=== PATIENT | male | born 1995 ===

== ENCOUNTER 2016-12-12 18:37 | Emergency (ER) | payer SELFPAY ==
[~2016-12-12] VITALS: Ht 190.5 cm; Wt 96.3 kg
[~2016-12-12 18:37] MED LIST: OXYC1TAB3 PO
[2016-12-12 18:39] VITALS: TEMP 36.9; Ht 190.5 cm; Wt 96.3 kg
[2016-12-12] MEDS ORDERED: IBUP-103 PO (18:50)
[2016-12-12] MEDS ORDERED: SODIUM CHLORIDE 0.9% 1000ML 1,000 ML IV STA (18:54)
[2016-12-12 19:09] VITALS: O2SAT 97
[2016-12-12 19:15] LABS: BASO % 0.2 %; BASO ABS # 0.02 K/uL (0-0.2); COMPLETE YES; EOS % 0.7 %; HEMATOCRIT 44.5 % (42-52); IG% 0.3 %; LYMPH % 20.3 %; LYMPH ABS # 1.97 K/uL (1.2-3.4); MEAN CELL VOLUME 89.2 fL (80-100); MEAN CORPUSCULAR HEMOGLOBIN 30.5 pg (25-34); MEAN CORPUSCULAR HGB CONC 34.2 g/dl (32-36); MEAN PLATELET VOLUME 10.2 fL (7.4-10.4); NEUT % 69.5 %; PLATELET COUNT 222 K/uL (130-400); RED BLOOD COUNT 4.99 M/uL (4.7-6.1)
[2016-12-12 19:30] LABS: ALT/SGPT 40 U/L (12-78); AST/SGOT 50 U/L (15-37); BLOOD UREA NITROGEN 19 mg/dl (7-18); BUN/CREATININE RATIO 14.5 (10-20); CALCIUM 8.7 mg/dl (8.5-10.1); CARBON DIOXIDE 30 mmol/L (21-32); CHLORIDE 105 mmol/L (98-107); GLUCOSE 94 mg/dl (70-99); POTASSIUM 3.9 mmol/L (3.5-5.1); SODIUM 141 mmol/L (136-145)
[2016-12-12 19:40] LABS: ALB/GLOB RATIO 1.2 (0.9-2); ALKALINE PHOSPHATASE 82 U/L (45-117); THYROID STIMULATING HORMONE 0.695 uIu/ml (0.300-4.500)
--- NOTE | 2016-12-12 19:44 | DIAGNOSTIC IMAGING REPORT ---
TWO VIEW CHEST CLINICAL HISTORY: Palpitations. FINDINGS: PA and lateral chest radiographs are obtained. No prior studies are available for comparison at the time of dictation. The cardiomediastinal silhouette is unremarkable. The lungs and pleural spaces are clear. There is no pneumothorax. The bony thorax appears intact. IMPRESSION: No active disease in the chest. Electronically signed by: Bhanu Arce M.D. 12/12/2016 7:42 PM Dictated Date/Time: 12/12/2016 7:41 PM
[2016-12-12 20:03] VITALS: BP 130/88; PULSE 83; O2SAT 98
--- NOTE | 2016-12-12 20:22 | EMERGENCY ROOM VISIT NOTE ---
History First contact with patient: 18:43 Chief Complaint: BRADYCARDIA Stated Complaint: BRADYCARDIA Nursing Triage Summary: pt to the ED with c/o feeling off during the day "i feel like my heart is beating slow and my breath is shallow". pt is concerned about a irregular heart beat no complaints of pain "i had a lot to drink last night" denies using drugs History of Present Illness The patient is a 21 year old male who presents to the Emergency Room with complaints of feeling "off" throughout the day. The patient states that he has been feeling like his heart is beating slower than normal and that his breath has been shallow. He states that he believes he may have been having irregular heartbeats at times. The patient came short of breath while walking up until, which is abnormal for him. He does report that he drank a significant amount of alcohol last night, which is abnormal for him. The patient denies any pain in the chest. He does report he has been lightheaded, but not dizzy. He denies any history of cardiac disease but does state that his mother has a history of a heart murmur. The patient denies any drug use. He denies any abdominal pain, nausea, vomiting or fevers. Review of Systems A complete 10-point Review of Systems was discussed with the patient, with pertinent positives and negatives listed in the History of Present Illness. All remaining Review of Systems questions can be considered negative unless otherwise specified. Past Medical/Surgical History Medical Problems: (1) No significant past medical history Surgical Problems: (1) No history of previous surgery Social History Smoking Status: Never Smoker Alcohol Use: none Marital Status: single Occupation Status: [employer] student Current/Historical Medications Scheduled Ibuprofen Tab (Advil), 200 MG PO DAILY Allergies Coded Allergies: No Known Allergies (Unverified , 12/12/16) Physical Exam Vital Signs Date Time Temp Pulse Resp B/P Pulse Ox O2 Delivery O2 Flow Rate FiO2 12/12/16 20:03 83 18 130/88 98 Room Air 12/12/16 19:11 96 Room Air 12/12/16 19:09 97 Room Air 12/12/16 19:04 88 12/12/16 18:39 36.9 100 18 149/88 97 Room Air Physical Exam VITALS: Vitals are noted on the nurse's note and reviewed by myself. Vital signs stable. GENERAL: This is a 21-year-old male, in no acute distress, nondiaphoretic, well- developed well-nourished. SKIN: Capillary reflex less than 2 seconds. HEENT: Normocephalic. PERRLA. EOMI. Nares patent. Mucous membranes moist. Neck is supple without nuchal rigidity. HEART: Regular rate and rhythm without murmurs gallops or rubs. LUNGS: Clear to auscultation bilaterally without wheezes, rales or rhonchi. No retractions or accessory muscle use. ABDOMEN: Positive bowel sounds x 4. Soft, nontender to palpation. NEURO: Patient was alert and oriented to person place and time. Normal sensation to light and sharp touch. Medical Decision & Procedures ER Provider Diagnostic Interpretation: TWO VIEW CHEST CLINICAL HISTORY: Palpitations. FINDINGS: PA and lateral chest radiographs are obtained. No prior studies are available for comparison at the time of dictation. The cardiomediastinal silhouette is unremarkable. The lungs and pleural spaces are clear. There is no pneumothorax. The bony thorax appears intact. IMPRESSION: No active disease in the chest. Laboratory Results 12/12/16 19:00 Red Blood Count 4.99, Mean Corpuscular Volume 89.2, Mean Corpuscular Hemoglobin 30.5, Mean Corpuscular Hemoglobin Concent 34.2, Mean Platelet Volume 10.2, Neutrophils (%) (Auto) 69.5, Lymphocytes (%) (Auto) 20.3, Monocytes (%) (Auto) 9.0, Eosinophils (%) (Auto) 0.7, Basophils (%) (Auto) 0.2, Neutrophils # (Auto) 6.74, Lymphocytes # (Auto) 1.97, Monocytes # (Auto) 0.87, Eosinophils # (Auto) 0.07, Basophils # (Auto) 0.02 12/12/16 19:00 Test 12/12/16 19:00 White Blood Count 9.70 K/uL (4.8-10.8) Red Blood Count 4.99 M/uL (4.7-6.1) Hemoglobin 15.2 g/dL (14.0-18.0) Hematocrit 44.5 % (42-52) Mean Corpuscular Volume 89.2 fL (80-100) Mean Corpuscular Hemoglobin 30.5 pg (25-34) Mean Corpuscular Hemoglobin Concent 34.2 g/dl (32-36) Platelet Count 222 K/uL (130-400) Mean Platelet Volume 10.2 fL (7.4-10.4) Neutrophils (%) (Auto) 69.5 % Lymphocytes (%) (Auto) 20.3 % Monocytes (%) (Auto) 9.0 % Eosinophils (%) (Auto) 0.7 % Basophils (%) (Auto) 0.2 % Neutrophils # (Auto) 6.74 K/uL (1.4-6.5) Lymphocytes # (Auto) 1.97 K/uL (1.2-3.4) Monocytes # (Auto) 0.87 K/uL (0.11-0.59) Eosinophils # (Auto) 0.07 K/uL (0-0.5) Basophils # (Auto) 0.02 K/uL (0-0.2) RDW Standard Deviation 40.0 fL (36.4-46.3) RDW Coefficient of Variation 12.4 % (11.5-14.5) Immature Granulocyte % (Auto) 0.3 % Immature Granulocyte # (Auto) 0.03 K/uL (0.00-0.02) D-Dimer < 190 ug/L FEU (0-500) Anion Gap 6.0 mmol/L (3-11) Est Creatinine Clear Calc Drug Dose 106.5 ml/min Estimated GFR () 89.8 Estimated GFR (Non- 77.5 BUN/Creatinine Ratio 14.5 (10-20) Calcium Level 8.7 mg/dl (8.5-10.1) Total Bilirubin 0.6 mg/dl (0.2-1) Aspartate Amino Transf (AST/SGOT) 50 U/L (15-37) Alanine Aminotransferase (ALT/SGPT) 40 U/L (12-78) Alkaline Phosphatase 82 U/L (45-117) Troponin I < 0.015 ng/ml (0-0.045) Total Protein 7.4 gm/dl (6.4-8.2) Albumin 4.1 gm/dl (3.4-5.0) Globulin 3.3 gm/dl (2.5-4.0) Albumin/Globulin Ratio 1.2 (0.9-2) Thyroid Stimulating Hormone (TSH) 0.695 uIu/ml (0.300-4.500) Medications Administered Medications (Trade) Dose Ordered Sig/[place] Route Start Time Stop Time Status Last Admin Dose Admin Sodium Chloride (Nss 1000ml) 1,000 ml @ 999 mls/hr Q1H1M STAT IV 12/12/16 18:54 12/12/16 19:54 DC 12/12/16 18:54 999 MLS/HR ECG Rate (beats per minute): 88 Rhythm: normal sinus Findings: no acute ischemic change, no ectopy Comparison ECG Date: no prior available Medical Decision Differential diagnosis includes acute coronary syndrome, pulmonary embolism, pneumothorax, pericarditis, myocarditis, endocarditis, anxiety, musculoskeletal pain, GERD, costochondritis, pneumonia, among others. The patient was evaluated as above. Labs were drawn and IV access was obtained. Imaging studies were performed and read by radiology as above. The patient was medicated with 1 L normal saline solution. The patient was reassessed multiple times during their stay in the emergency department and remained in stable condition. The patient is a 21-year-old male who presents today complaining of palpitations and shallow breathing. Labs revealed no leukocytosis, anemia or concerning electrolyte abnormalities. BUN was slightly elevated consistent with dehydration. AST was slightly elevated consistent with the patient's recent alcohol ingestion. Troponin was not elevated. D-dimer was not elevated. EKG was interpreted by myself and showed a normal sinus rhythm without ischemia or arrhythmias. Chest x-ray was unremarkable. The patient did report that he felt better after receiving 1 L of IV fluids. I feel the patient's symptoms are likely secondary to his recent alcohol ingestion. He was instructed to drink plenty of fluids and follow-up with [facility] if he has any persistent symptoms. Based on the patient's presentation, lab results, and imaging studies, I feel the patient is stable for outpatient treatment. The patient's case was reviewed with Dr. Ramos, ED attending physician, who agreed with my assessment and treatment plan. Discharge instructions were reviewed with the patient. The patient verbalized understanding of my assessment and treatment plan and was discharged home in good condition. Impression Primary Impression: Palpitations Departure Information Dispostion Home / Self-Care Condition GOOD Referrals No Doctor, Assigned (PCP) Patient Instructions My [facility] Nourish Additional Instructions Rest and drink plenty fluids. For pain control, you can use the following [id number] medicines (if >12 yo): - Regular strength (325mg/tab) Tylenol (acetaminophen) 2 tabs every 4-6 hours as needed. Do not exceed 12 tablets in a 24 hour period. Avoid taking more than 4 grams (4000 mg) of Tylenol per day. This includes any other sources of acetaminophen you may take on a regular basis. - Regular strength (200 mg/tab) Advil (ibuprofen) 1-2 tabs every 4-6 hours as needed. Do not exceed a dose of 3200 mg per day. If you have persistent symptoms in 1-2 days, you should follow-up with [facility].
== END 2016-12-12 20:30 | disposition home or self-care (01) ==
LOC: C.EDB 18:39 → C.EDA 20:30
DX: R00.2 Palpitations (principal)